=== PATIENT | female | born 1925 | race Caucasian/White ===

== ENCOUNTER 2017-01-18 08:10 | Emergency (ER) | payer MEDICARE, BC ==
[~2017-01-18 08:10] MED LIST: ATOR20TA PO; CLOP75 PO; ECASA PO; LORA-392 PO; MULT1TAB46; NAME5TAB2 PO; PANT20 PO
[2017-01-18 08:16] VITALS: BP 213/79; PULSE 66; RESP 18; TEMP 97.7; O2SAT 96
[2017-01-18] MEDS ORDERED: PLAV75TA29 PO (08:28)
[2017-01-18] MEDS ORDERED: ZANTTAB11 (08:28)
[2017-01-18] MEDS ORDERED: LORA-392 PO (08:28)
[2017-01-18] MEDS ORDERED: FURO1TAB62 PO (08:28)
[2017-01-18] MEDS ORDERED: DOXY1LIQ3 PO (08:28)
[2017-01-18] MEDS ORDERED: TYLE325T PO (08:28)
[2017-01-18] MEDS ORDERED: ATOR20TA15 PO (08:28)
[2017-01-18] MEDS ORDERED: POTA1CAP PO (08:28)
[2017-01-18] MEDS ORDERED: MELA5TAB15 PO (08:28)
[2017-01-18] MEDS ORDERED: NAME5TAB2 PO (08:28)
[2017-01-18] MEDS ORDERED: NYST500000 PO (08:28)
--- NOTE | 2017-01-18 09:25 | PD ---
HPI Chief Complaint: Fall Time Seen by Provider: 08:21 Travel History International Travel<30 days: No Contact w/Intl Traveler<30days: No Traveled to known affect area: No History of Present Illness HPI Patient is an 89-year-old female brought in by EMS after she fell at her snf. She says she was reaching for some clothes when she fell backwards and hit her head. She says she has a big lump on the back of her head. She denies loss of consciousness. She denies any other injuries. She denies pain to her extremities. She says she has fallen multiple times. She does take Plavix. PFSH Past Medical History Hx Anticoagulant Therapy: Yes (plavix) Anxiety: Yes Depression: Yes Heart Rhythm Problems: Yes (SECOND DEGREE BLOCK) Cardiovascular Problems: Yes Dementia: Yes Diabetes: No Diminished Hearing: Yes (RIGHT EAR) Hypertension: Yes Psychiatric: Yes Menopausal: Yes Past Surgical History Surgical History: Unable to Obtain Social History Alcohol Use: No Tobacco Use: No Substance Use: No Allergies-Medications (Allergen,Severity, Reaction): Coded Allergies: No Known Allergies (Unverified , 01/18/17) Reported Meds & Prescriptions Reported Meds & Active Scripts Active Reported Zantac 75 (Ranitidine HCl) 75 Mg Tablet Tylenol (Acetaminophen) 325 Mg Tab 325 Mg PO Q6H PRN Robitussin Nighttime Cough Liq (Doxylamine-Dextromethorphan Liq) 12.5-30 Mg/10 Ml Soln 10 Ml PO Q6H PRN Plavix (Clopidogrel Bisulfate) 75 Mg Tab 75 Mg PO DAILY Nystatin 500,000 Unit Tab 1,000,000 Units PO Q8H Namenda (Memantine) 5 Mg Tab 5 Mg PO DAILY Melatonin 5 Mg Tab 6 Mg PO HS Lasix (Furosemide) 20 Mg Tab 20 Mg PO DAILY Klor-Con Sprinkle (Potassium Chloride) 8 Meq Cap 10 Meq PO DAILY Atorvastatin (Atorvastatin Calcium) 20 Mg Tab 20 Mg PO HS Ativan (Lorazepam) 0.5 Mg Tab 0.5 Mg PO Q6H PRN Review of Systems Except as stated in HPI: all other systems reviewed are Neg General / Constitutional: No: Fever, Chills HENT: Positive: Headaches, No: Lightheadedness Cardiovascular: No: Chest Pain or Discomfort Respiratory: No: Shortness of Breath Gastrointestinal: No: Nausea, Vomiting Genitourinary: No: Dysuria Musculoskeletal: No: Myalgias, Pain Skin: No Rash, No Change in Pigmentation Neurologic: No: Weakness, Dizziness, Syncope Physical Exam Narrative GENERAL: Awake and alert, in no acute distress. SKIN: Focused skin assessment warm/dry. HEAD: Hematoma to the top of the head on the right side. Normocephalic. EYES: Pupils equal and round. No scleral icterus. Extraocular movements intact. ENT: Mucous membranes pink and moist. NECK: Trachea midline. No JVD. CARDIOVASCULAR: Regular rate and rhythm. No murmur appreciated. RESPIRATORY: No accessory muscle use. Clear to auscultation. Breath sounds equal bilaterally. GASTROINTESTINAL: Abdomen soft, non-tender, nondistended. Hepatic and splenic margins not palpable. MUSCULOSKELETAL: No obvious deformities. No clubbing. No cyanosis. No edema. Full range of motion of all of her extremities. No tenderness to palpation of the upper or lower extremities, pelvis is stable. NEUROLOGICAL: Awake and alert. No obvious cranial nerve deficits. Motor grossly within normal limits. Normal speech. PSYCHIATRIC: Appropriate mood and affect; insight and judgment normal. Data Data Last Documented VS Vital Signs Date Time Temp Pulse Resp B/P Pulse Ox O2 Delivery O2 Flow Rate FiO2 01/18/17 12:20 52 18 167/72 96 01/18/17 08:[address] Brain W/O Iv Contrast(Rout) (01/18/17 ) Ct Cerv Spine W/O Contrast (01/18/17 ) Diet Regular Basic (01/18/17 Breakfast) MDM Medical Decision Making Medical Screen Exam Complete: Yes Emergency Medical Condition: Yes Medical Record Reviewed: Yes Differential Diagnosis ICH versus hematoma versus head injury Narrative Course Patient is an 89-year-old female comes in after a fall. Exam shows hematoma to the top of the head. There are no neurologic abnormalities. CT head and C- spine performed show no acute abnormalities. Patient will be discharged back to snf. Diagnosis Primary Impression: Fall Qualified Code: W19.XXXA - Fall, initial encounter Additional Impression: Head injury Qualified Code: S09.90XA - Head injury, initial encounter Patient Instructions: Fall Prevention (ED), General Instructions, Hematoma (ED) Additional Instructions: Be careful when walking, use a cane or walker if necessary. Apply ice to her head, take Tylenol as needed for pain. Follow-up with your doctor. Return to the emergency department as needed for any worsening symptoms. Disposition: 03 DISCHARGE TO SNF Condition: Stable Bess Bryant MD Jan 18, 2017 09:25
--- NOTE | 2017-01-18 09:45 | RADRPT ---
EXAM DATE/TIME: 01/18/2017 09:17 [facility] COMPARISON: CT BRAIN W/O CONTRAST, July 21, 2015, 13:15. INDICATIONS : Trauma; fall. RADIATION DOSE: 32.67 CTDIvol (mGy) MEDICAL HISTORY : Dementia. Cardiovascular disease Hypertension. SURGICAL HISTORY : None. ENCOUNTER: Initial ACUITY: 1 day PAIN SCALE: Non-responsive LOCATION: cranial TECHNIQUE: Multiple contiguous axial images were obtained of the head. Using automated exposure control and adj ustment of the mA and/or kV according to patient size, radiation dose was kept as low as reasonably a chievable to obtain optimal diagnostic quality images. DICOM format image data is available electro nically for review and comparison. FINDINGS: Compare July 2015. There is a remote lacunar infarct right basal ganglia. Stable focal encephalom alacia right parietal lobe. No acute intracranial hemorrhage, mass or shift. No hydrocephalus. No acu te bony abnormalities. CONCLUSION: 1. No acute intracranial abnormalities. Remote lacunar infarct right basal ganglia. Chronic white mat ter ischemic changes. Jurgen Sánchez MD on January 18, 2017 at 9:40 Board Certified Radiologist. This report was verified electronically.
--- NOTE | 2017-01-18 09:49 | RADRPT ---
EXAM DATE/TIME: 01/18/2017 09:17 [facility] COMPARISON: No previous studies available for comparison. INDICATIONS : Trauma, fall. RADIATION DOSE: 18.82 CTDIvol (mGy) MEDICAL HISTORY : Dementia. Cardiovascular disease Hypertension. SURGICAL HISTORY : None. ENCOUNTER: Initial ACUITY: 1 day PAIN SCALE: Non-responsive LOCATION: neck TECHNIQUE: Volumetric scanning of the cervical spine was performed. Multiplanar reconstructions in the sagittal, coronal and oblique axial planes were performed. Using automated exposure control and adjustment o f the mA and/or kV according to patient size, radiation dose was kept as low as reasonably achievable to obtain optimal diagnostic quality images. DICOM format image data is available electronically f or review and comparison. FINDINGS: There is moderate degenerative disc disease in cervical spine. There is no significant bony canal asa nosis. No fracture or spondylolisthesis or pre-vertebral soft tissue swelling. CONCLUSION: 1. No acute findings. Moderate degenerative disc disease without significant stenosis. Jurgen Sánchez MD on January 18, 2017 at 9:44 Board Certified Radiologist. This report was verified electronically.
[2017-01-18 12:20] VITALS: BP 167/72
== END 2017-01-18 12:21 ==
LOC: NEPE 08:10
DX: S00.03XA Contusion of scalp, initial encounter (principal); W19.XXXA Unspecified fall, initial encounter; Y92.129 Unspecified place in nursing home as the place of occurrence of the external cause; I10 Essential (primary) hypertension; F41.8 Other specified anxiety disorders; Z79.02 Long term (current) use of antithrombotics/antiplatelets
CPT/HCPCS: 70450; 72125; 99285